=== PATIENT | female | born 1945 | race Caucasian/White ===

== ENCOUNTER 2018-10-27 09:44 | Day surgery (SDC) | payer MEDICARE, BC ==
[2018-10-26 12:18] VITALS: BMI 32.8
== END 2018-10-27 12:20 | disposition home or self-care (01) ==
LOC: MRI 09:44
PROVIDERS: ATTEND Neurological Surgery
DX: M51.36 Other intervertebral disc degeneration, lumbar region (principal); Z53.9 Procedure and treatment not carried out, unspecified reason

== ENCOUNTER 2019-02-21 12:06 | Outpatient (CLI) | payer MEDICARE, BC ==
--- NOTE | 2019-02-21 13:41 | MRI ---
MRI lumbar spine noncontrast: HISTORY: Degenerative disc disease of the lumbar spine. Low back pain. Bilateral lower extremity weakness, rosibel es several years. COMPARISON: None FINDINGS: Appropriate T1 marrow signal intensity of the lumbar vertebrae. Lumbar spine vertebral body height is maintained. There is no fracture. No significant STIR hyperintensity to suggest vertebral body edema or ligamentous injury. Appropriate signal intensity of the visualized paraspinal muscles. No retroperitoneal mass, lymphaden opathy or hematoma. Bilateral extrarenal pelvises are noted. Conus medullaris terminates at the mid L1 level T12-L1:Adequate disc hydration. Minimal ligament flavum thickening and facet hypertrophy. No signific ant central canal stenosis or significant neural foraminal narrowing. L1-L2:Adequate disc hydration. No significant posterior disc abnormality. No significant central nancy l stenosis. Bilaterally, neural foramina are patent. L2-L3:Desiccation with moderate loss of disc space height. There is a broad-based disc bulge with a s uperior left subarticular disc extrusion. Ligamentum flavum thickening and facet hypertrophy are present. At the disc space, moderate central canal stenosis. Given superior disc extrusion, there is mass effect and partial obscuration of the traversing left L2 nerve root before it enters the left neural foramen. Mild right foraminal narrowing due to disc material and posterior element hypertrophy . Mild to moderate left foraminal narrowing due to disc material and posterior element hypertrophy. L3-L4:Disc desiccation with mild to moderate loss of disc space height. Broad-based disc bulge, ligam ent flavum thickening and facet hypertrophy result in moderate central canal stenosis. Mild bilateral neural foraminal narrowing L4-L5:Desiccation with severe loss of disc space height. Broad-based disc bulge, ligament flavum thic kening and facet hypertrophy result in severe central canal stenosis. Moderate to severe right neural foraminal narrowing. Patent left neural foramen L5-S1:Desiccation with mild to moderate loss of disc space height. Broad-based disc bulge, ligament f lavum thickening and facet hypertrophy result in severe central canal stenosis. Marked narrowing of the left subarticular zone with complete obscuration of the traversing left S1 nerve root secondary t o disc material and posterior element hypertrophy. Moderate right and moderate to severe left foraminal narrowing. IMPRESSION: 1. Severe central canal stenosis at L5-S1 with marked narrowing of the left subarticular zone. Comple te obscuration of the traversing left S1 nerve root. 2. Moderate to severe right neural foraminal narrowing at L4-L5. Severe central canal stenosis at L4- L5. 3. Moderate central canal stenosis at L3-L4. Transcribed Date/Time: 02/21/2019 2:00 PM
== END 2019-02-21 12:07 | disposition home or self-care (01) ==
LOC: MRI 12:06
PROVIDERS: ATTEND Neurological Surgery
DX: M51.36 Other intervertebral disc degeneration, lumbar region (principal); M54.5 Low back pain; M48.07 Spinal stenosis, lumbosacral region; M48.061 Spinal stenosis, lumbar region without neurogenic claudication
CPT/HCPCS: 72148

== ENCOUNTER 2020-06-04 11:11 | Outpatient (CLI) | payer MEDICARE, BC | END 2020-06-04 11:12 | disposition home or self-care (01) | LOC: MRI 11:11 → EDSTATUS 12:00 | PROVIDERS: ATTEND Neurological Surgery | DX: M48.062 Spinal stenosis, lumbar region with neurogenic claudication (principal); M21.379 Foot drop, unspecified foot | CPT/HCPCS: 71045 ==

== ENCOUNTER 2020-06-09 10:55 | Outpatient (CLI) | payer MEDICARE, BC | END 2020-06-09 10:56 | disposition home or self-care (01) | LOC: MRI 10:55 | PROVIDERS: ATTEND Neurological Surgery | DX: M48.062 Spinal stenosis, lumbar region with neurogenic claudication (principal); M21.379 Foot drop, unspecified foot; M47.816 Spondylosis without myelopathy or radiculopathy, lumbar region | CPT/HCPCS: 72148 ==

== ENCOUNTER 2020-06-30 15:10 | Outpatient (CLI) | payer MEDICARE, BC | END 2020-06-30 15:11 | disposition home or self-care (01) | LOC: CT 15:10 | PROVIDERS: ATTEND Neurological Surgery | DX: M47.26 Other spondylosis with radiculopathy, lumbar region (principal); M79.606 Pain in leg, unspecified; M48.062 Spinal stenosis, lumbar region with neurogenic claudication; Z98.1 Arthrodesis status | CPT/HCPCS: 72100; 72131 ==

== ENCOUNTER 2020-08-27 08:56 | Outpatient (CLI) | payer MEDICARE, BC | END 2020-08-27 08:57 | disposition home or self-care (01) | LOC: TBSIIMAG 08:56 | PROVIDERS: ATTEND Physician Assistant | DX: M51.36 Other intervertebral disc degeneration, lumbar region (principal); M47.816 Spondylosis without myelopathy or radiculopathy, lumbar region; Z98.890 Other specified postprocedural states | CPT/HCPCS: 72100 ==

== ENCOUNTER 2020-10-16 12:37 | Outpatient (CLI) | payer MEDICARE, BC | END 2020-10-16 12:38 | disposition home or self-care (01) | LOC: TBSIIMAG 12:37 | PROVIDERS: ATTEND Neurological Surgery | DX: M54.5 Low back pain (principal); M47.816 Spondylosis without myelopathy or radiculopathy, lumbar region; Z98.890 Other specified postprocedural states | CPT/HCPCS: 72100 ==

== ENCOUNTER 2021-01-08 09:18 | Outpatient (CLI) | payer MEDICARE, BC | END 2021-01-08 09:19 | disposition home or self-care (01) | LOC: MRI 09:18 | PROVIDERS: ATTEND Neurological Surgery | DX: M48.062 Spinal stenosis, lumbar region with neurogenic claudication (principal); M51.36 Other intervertebral disc degeneration, lumbar region; M51.37 Other intervertebral disc degeneration, lumbosacral region; M47.816 Spondylosis without myelopathy or radiculopathy, lumbar region; M25.78 Osteophyte, vertebrae; Z95.0 Presence of cardiac pacemaker; Z98.890 Other specified postprocedural states | CPT/HCPCS: 71045; 72131; 72148 ==